=== PATIENT | female | born 1940 | race Caucasian/White ===

== ENCOUNTER 2019-08-05 16:19 | Inpatient (IN) | payer MEDICARE, BC ==
[~2019-08-05] VITALS: Ht 167.6 cm; Wt 79.9 kg
[2019-08-05 16:21] VITALS: BP 125/76
[2019-08-05] MEDS ORDERED: METHYL SALICYLATE/MENTHOL TOPICAL OINTMENT 57GM TUBE. TP PRN (16:45)
[2019-08-05] MEDS ORDERED: MAG HYDROX/AL HYDROX/SIMETH 30 ML ORAL.SUSP PO PRN (16:45)
[2019-08-05] MEDS ORDERED: MAGNESIUM HYDROXIDE 2,400 MG/30 ML ORAL.SUSP. PO PRN (16:45)
[2019-08-05] MEDS ORDERED: ACETAMINOPHEN 325 MG TABLET PO PRN (16:45)
[2019-08-05] MEDS ORDERED: ACET325T21 PO (17:04)
[2019-08-05] MEDS ORDERED: BETH10TA12 PO (17:04)
[2019-08-05] MEDS ORDERED: RIVA20TA2 PO (17:04)
[2019-08-05] MEDS ORDERED: AMLO5TAB10 PO (17:04)
[2019-08-05] MEDS ORDERED: TRAM50TA PO (17:04)
[2019-08-05] MEDS ORDERED: AMIO400T5 PO (17:04)
[2019-08-05] MEDS ORDERED: SERT50TA PO (17:04)
[2019-08-05] MEDS ORDERED: LOSA50TA86 PO (17:04)
[2019-08-05] MEDS ORDERED: traMADol 50 MG TABLET PO PRN (17:15)
[2019-08-05] MEDS: RIVAROXABAN 10 MG TABLET. PO SCH (17:37)
[2019-08-05] MEDS: AMIODARONE HCL 200 MG TABLET PO SCH (20:24)
[2019-08-05 21:02] LABS: ALBUMIN/GLOBULIN RATIO 0.5 (1.0-1.7); CALCIUM 8.4 mg/dL (8.5-10.1); CREATININE 0.8 mg/dL (0.6-1.0); GFR 69.4; MAGNESIUM 1.9 mg/dL (1.8-2.4); POTASSIUM 3.3 mmol/L (3.5-5.1); TOTAL BILIRUBIN 0.3 mg/dL (0.2-1.0); TOTAL PROTEIN 5.9 g/dL (6.4-8.2)
[2019-08-05 21:10] LABS: BASO # 0.1 x10^3/uL (0.0-0.2); BASO % 0 % (0-3); EOS % 0 % (0-3); HEMATOCRIT 29.1 % (36.0-47.0); HEMOGLOBIN 8.5 g/dL (12.0-15.5); LYMPH # 1.8 x10^3/uL (1.0-4.8); LYMPH % 12 % (24-48); MEAN CORPUSCULAR HEMOGLOBIN 20 pg (25-35); MEAN CORPUSCULAR HGB CONC 29 g/dL (31-37); MEAN CORPUSCULAR VOLUME 69 fL (79-100); MONO # 0.8 x10^3/uL (0.0-1.1); MONO % 6 % (0-9); NEUT # 12.2 x10^3uL (1.8-7.7); NEUT % 82 % (31-73); PLATELET COUNT 399 x10^3/uL (140-400); RED BLOOD COUNT 4.23 x10^6/uL (3.50-5.40); RED CELL DISTRIBUTION WIDTH 22.7 % (11.5-14.5); WHITE BLOOD COUNT 14.9 x10^3/uL (4.0-11.0)
--- NOTE | 2019-08-05 21:52 | PDOC ---
Exam Note: Daryn Note: Please also refer to the separate dictated note~for this date of service dictated separately. Discussed the patient with Nursing staff reviewed the chart.~Reviewed interim history and current functioning. Reviewed vital signs,~Labs/ Radiology~and current medications noted below. Continue current treatment with the changes noted in the dictated addendum note Assessment: Vital Signs/I&O: Vital Signs Date Time Temp Pulse Resp B/P (MAP) Pulse Ox O2 Delivery O2 Flow Rate FiO2 08/05/19 20:24 87 125/76 08/05/19 16:21 97.7 18 93 Room Air Labs: Laboratory Tests Test 08/05/19 20:40 White Blood Count 14.9 x10^3/uL (4.0-11.0) H Red Blood Count 4.23 x10^6/uL (3.50-5.40) Hemoglobin 8.5 g/dL (12.0-15.5) L Hematocrit 29.1 % (36.0-47.0) L Mean Corpuscular Volume 69 fL (79-100) L Mean Corpuscular Hemoglobin 20 pg (25-35) L Mean Corpuscular Hemoglobin Concent 29 g/dL (31-37) L Red Cell Distribution Width 22.7 % (11.5-14.5) H Platelet Count 399 x10^3/uL (140-400) Neutrophils (%) (Auto) 82 % (31-73) H Lymphocytes (%) (Auto) 12 % (24-48) L Monocytes (%) (Auto) 6 % (0-9) Eosinophils (%) (Auto) 0 % (0-3) Basophils (%) (Auto) 0 % (0-3) Neutrophils # (Auto) 12.2 x10^3uL (1.8-7.7) H Lymphocytes # (Auto) 1.8 x10^3/uL (1.0-4.8) Monocytes # (Auto) 0.8 x10^3/uL (0.0-1.1) Eosinophils # (Auto) 0.0 x10^3/uL (0.0-0.7) Basophils # (Auto) 0.1 x10^3/uL (0.0-0.2) Platelet Estimate Pending Sodium Level 140 mmol/L (136-145) Potassium Level 3.3 mmol/L (3.5-5.1) L Chloride Level 102 mmol/L (98-107) Carbon Dioxide Level 26 mmol/L (21-32) Anion Gap 12 (6-14) Blood Urea Nitrogen 12 mg/dL (7-20) Creatinine 0.8 mg/dL (0.6-1.0) Estimated GFR (Cockcroft-Gault) 69.4 BUN/Creatinine Ratio 15 (6-20) Glucose Level 128 mg/dL (70-99) H Calcium Level 8.4 mg/dL (8.5-10.1) L Magnesium Level 1.9 mg/dL (1.8-2.4) Total Bilirubin 0.3 mg/dL (0.2-1.0) Aspartate Amino Transferase (AST) 32 U/L (15-37) Alanine Aminotransferase (ALT) 45 U/L (14-59) Alkaline Phosphatase 138 U/L (46-116) H Total Protein 5.9 g/dL (6.4-8.2) L Albumin 2.0 g/dL (3.4-5.0) L Albumin/Globulin Ratio 0.5 (1.0-1.7) L Current Medications: Meds: Current Medications Medications (Trade) Dose Ordered Sig/Khris Route PRN Reason Start Time Stop Time Status Last Admin Dose Admin Rivaroxaban (Xarelto) 20 mg DAILYWSUP PO 08/05/19 17:00 08/05/19 17:37 I have reviewed the current psychotropics carefully including drug interactions. Risk benefit ratio favors no change other than as noted in my dictated progress note. Diagnosis: Problems: (1) MDD (major depressive disorder), severe (2) Psychotic depression (3) Psychosis, atypical (4) Major depressive disorder, recurrent episode LAI EDGE MD Aug 05, 2019 21:52
--- NOTE | 2019-08-05 21:53 | EKG ---
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
[2019-08-05 22:07] LABS: ANISOCYTOSIS MOD; HYPOCHROMIA MOD; MICROCYTOSIS MOD; OVALOCYTES FEW; PLATELET CLUMP PRESENT; PLT ESTIMATE ADEQUATE (ADEQUATE); POLYCHROMASIA SLIGHT; SPHEROCYTES OCC; TARGET CELLS FEW; TEAR DROP CELLS OCC
[2019-08-05 22:08] LABS: SCHISTOCYTES OCC
[2019-08-06 05:54] LABS: CLARITY,URINE HAZY; COLOR,URINE YELLOW
[2019-08-06 05:55] LABS: BACTERIA,URINE MOD /HPF (0-FEW); BILIRUBIN,URINE NEG (NEG); GLUCOSE,URINE NEG (NEG); NITRITE,URINE POS (NEG); RBC,URINE >40 /HPF (0-2); SQUAMOUS EPITHELIAL CELL,UR MOD /LPF; UROBILINOGEN,URINE 0.2 mg/dL (0.2 mg/dL); WBC,URINE >40 /HPF (0-4); YEAST,URINE PRESENT /HPF
[2019-08-06 06:17] VITALS: BP 149/71
[2019-08-06] MEDS: BETHANECHOL CHLORIDE 25 MG TABLET PO SCH ×3 (07:30→16:55)
[2019-08-06] MEDS ORDERED: TAMS0.4C97 PO (07:32)
[2019-08-06] MEDS: AMIODARONE HCL 200 MG TABLET PO SCH ×2 (09:00→20:06)
[2019-08-06] MEDS ORDERED: SERTRALINE 25 MG TABLET. PO SCH (09:00)
--- NOTE | 2019-08-06 11:00 | RAD ---
RENAL COMPLETE BILATERAL, US PELVIS History: Decreased urine output. History of obstruction. Comparison: None. Procedure: Transabdominal ultrasound images are obtained of the kidneys and bladder. Transabdominal ultrasound of the pelvis was also performed. Findings: Renal ultrasound: Right kidney: measures 10.4 x 5.2 x 6.3 cm. No hydronephrosis. Echogenic focus within the mid inferior kidney measures 1.5 cm. Left kidney: measures 9.2 x 6.0 x 5.4 cm. No hydronephrosis. Multiple left renal cysts largest measures 3.2 cm. Urinary bladder: Decompressed urinary bladder with Salgado catheter in place. The IVC is patent. The visualized abdominal aorta is normal caliber. Pelvic ultrasound: Prior hysterectomy. Bilateral ovaries not identified, may relate to absence due to surgery or related to positioning and overlying bowel gas. No adnexal fluid collection or mass identified. No free fluid. IMPRESSION: 1. Nonobstructing right renal calculus. No hydronephrosis. 2. Multiple left renal cysts. 3. Prior hysterectomy. Electronically signed by: Joel Wallace DO (08/06/2019 10:57 AM) [id number]
[2019-08-06 12:15] VITALS: BP 114/67
[2019-08-06] MEDS: LOSARTAN 50 MG TABLET. PO SCH (12:26)
[2019-08-06] MEDS: amLODIPine BESYLATE 5 MG TABLET PO SCH (12:27)
[2019-08-06] MEDS: TAMSULOSIN 0.4 MG CAP.ER.24H. PO SCH (12:27)
[2019-08-06 12:35] LABS: THYROID STIM HORMONE (TSH) 3.645 uIU/mL (0.358-3.740)
[2019-08-06] MEDS: ACETAMINOPHEN 325 MG TABLET PO PRN (13:16)
--- NOTE | 2019-08-06 13:23 | HP ---
ADMIT DATE: 08/05/2019 PSYCHIATRIC ADMISSION HISTORY AND EVALUATION This late entry, 08/05/2019, covers elements not covered in my initial note. Also discussed with Nathalie Davila, lead clinical research coordinator after we received a referral from [facility] where the patient was hospitalized for medical stabilization, status post fall at home and she is referred to us by Dr. Gallo, her primary care physician after having a psychiatric consultation at the facility, recommending inpatient psychiatric stabilization for worsening symptoms of depression, suicidal ideation, and the patient being almost catatonic consequent to depression. CHIEF COMPLAINT: "I was living at home by myself. I fell. Maybe I laid on the floor for more than 1 day before they found me. Yes, I have been depressed. There is nothing to look forward to." HISTORY OF PRESENT ILLNESS: The patient has a history of worsening symptoms of depression, feeling hopeless, helpless, worthless, poor appetite, low energy, low motivation, refusing cares and medications. Reportedly, she has had a flat affect as intermittent " wish." She will not get out of bed, although she is physically able to and will do so if she has commanded to get up. She had a recent fall resulting in dehydration and has had a UTI and urinary sepsis. She has failed outpatient psychiatric interventions resulting in this referral. PAST PSYCHIATRIC HISTORY: Positive for progressive symptoms of worsening depression, which has been fairly severe with physical manifestations. MEDICAL HISTORY: Positive for recent UTI; urosepsis; diverticulosis, status post dehydration; major depressive disorder, recurrent, severe with catatonic features; syncope; anemia; repeated falls; atrial fibrillation; hypertension; CA breast; hematuria. The patient has had MRI of the brain and abdominal CT at [facility]. ACCU-CHEKS: None. DIET: Low sodium, regular texture. Takes medications whole, ambulates up ad rosalio. ALLERGIES: PENICILLIN, KEFLEX. CODE STATUS: Full code. CURRENT PSYCHOTROPICS: Zoloft 75 mg a day. REVIEW OF SYSTEMS: Ambulation impaired, in wheelchair. No CV, , pulmonary, eye, ENT system symptoms on review. Reliability varies. MENTAL STATUS EXAMINATION: Oriented to herself and situation. Speech moderate latency, often responses monosyllabic. Abstraction fair, computation impaired, language function intact, attention span short. Mood and affect depressed. Verbal responses are moderate to marked latency, often responses monosyllabic. No active suicidal or homicidal ideation. LABORATORY DATA: Reviewed. IMPRESSION: Major depressive disorder, recurrent, severe with psychotic features; anxiety disorder, unspecified. Rest as above. PLAN: Admit to Geropsychiatry Unit at [facility]. I will see the patient daily individually from a psychiatric standpoint. Medical followup with Dr. Obrien. Continue the patient on her current psychotropics. May need to increase Zoloft or augment with Wellbutrin or Abilify. We will have social service staff, explore appropriate placement options with the patient. She was living at home by herself prior to coming to [facility] and then to us and she may not be able to function on her own. Estimated length of stay 10-12 days. DISPOSITION PLANS: Possibly placement may be needed at discharge. We will involve the family and his decision along with the patient. LAI EDGE MD DR: TYESHA/abeba JOB#: [id number] / [id number]
--- NOTE | 2019-08-06 14:50 | TX PLAN ---
Interdisciplinary Tx Plan Admission Information Aug 05, 2019 at 16:19 Legal Status (on Admission): Voluntary DPOA/Guardian Name: Michael Ordaz-son Contact Other Contact Verified Code Status: Full Code Allergies: Coded Allergies: Penicillins (Verified Allergy, Unknown, 08/05/19) cephalexin (Verified Allergy, Unknown, 08/05/19) Diagnoses Primary Diagnosis: MDD severe Reasons for Admission: Depressed, Sig. Change Appetite, Suicidal ideation Problem in Patient's Words: Per Mary, "I fell. I was on the floor for a long time." Additional Admission Comments: Per intake record, refusing care and medications, depressed with flat affect, has " wishes", declining to get out of bed, reports she can't move but when ordered to is able, poor appetite, poor energy level, and poor motivation. Problems Active Problems: Depressed, not caring for self, decreased motivation, needing physical support with adl's, preferring to stay in bed. Poor intake of meals with weight loss and lets her legs go weak when staff are assisting to transfer. Inactive Problems: Mary has been cooperative with medication administration and has agreed to try boost. Pt Strengths/Limitations Ability for Cameron: Poor Cognitive Functioning/Ability: Fair Communication Skills/Ability: Fair Financial Resources: Fair Insight/Judgement: Fair Intellectual Ability: Good Physical Health: Poor Social Skills: Fair Stability in Family: Good Verbal Skills: Fair Discharge Criteria Discharge Criteria: Able meet basic life need, Able to meet health needs, Adequate arrangements @DC, Adequate self-care, Verbal commit med comply, Improved mood/thought Preliminary Discharge Plan Preliminary DC Plan: Acute Rehab Other Arrangements: Mary prefers to return home upon d/c if physically able to do ADL's. Special Precautions Fall Risk: High Initial D/C Plan Home vs. SNF for acute rehab Identified Discharge Needs: Mary may benefit from a rehab stay after stabilized. She would prefer to return home if she is physically able to care for herself. She will need f/u with her PCP and would benefit from out patient psychiatry services. Currently Utilized Resources Currently Utilized Resources/P: PCP is Dr. Enrique Gallo. Referrals Community Resources: Out patient psychiatry Identified Problems/Hx/Goals Objectives/Short-Term Goals Short Term Goals: Decrease Isolation, Dec. Symp. Depression, Medication Stabilization, Monitor Med Effects, No Suicidal/Liang. ideation, Promote Coping Skill Short Term Goals in Patient's: "I want to go home and see my baby dog." Interventions/Frequency Staff Interventions/Frequency&: Nursing routine checks for safety, medication administration, and support with adl's. Psychiatry visits 3-5 times weekly. SW visits 2X weekly. SW and rec therapy groups involvement as Mary will participate. 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 Education: Mary graduated high school. She obtained a [employer] degree. 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 Community Follow-up PCP and out patient psychiatry Community Provider/Family Inpu: Mary and Michael(son/POA) will be involved in team meeting on 08/07/19, weather permitting. Treatment Plan Explained Patient/Billing Adjudicator had this treatment plan explained to him/her as indicated by the signature below and has been given the opportunity to ask questions and make suggestions: Date: Patient/Billing Adjudicator Signature: Patient/Billing Adjudicator Decline: Yes RYLEE ALEX Aug 06, 2019 14:50
[2019-08-06 15:56] VITALS: BP 110/59
[2019-08-06] MEDS: RIVAROXABAN 10 MG TABLET. PO SCH (16:54)
[2019-08-06 17:07] LABS: THYROXINE 9.3 ug/dL (4.5-12.0)
--- NOTE | 2019-08-06 20:51 | PDOC ---
Exam Note: Daryn Note: Please also refer to the separate dictated note~for this date of service dictated separately.~Patient seen individually. Discussed the patient with Nursing staff reviewed the chart.~Reviewed interim history and current functioning. Reviewed vital signs,~Labs/ Radiology~and current medications noted below. Continue current treatment with the changes noted in the dictated addendum note Assessment: Vital Signs/I&O: Vital Signs Date Time Temp Pulse Resp B/P (MAP) Pulse Ox O2 Delivery O2 Flow Rate FiO2 08/06/19 20:06 78 110/59 08/06/19 15:56 97.6 16 97 Room Air I & O 08/05/19 08/05/19 08/06/19 15:00 23:00 07:00 Intake Total 240 ml Balance 240 ml Labs: Laboratory Tests Test 08/06/19 05:45 Urine Collection Type Unknown Urine Color Yellow Urine Clarity Hazy Urine pH 6.0 Urine Specific [place] 1.020 Urine Protein 100 mg/dl (NEG-TRACE) Urine Glucose (UA) Neg mg/dL (NEG) Urine Ketones (Stick) 15 mg/dL (NEG) Urine Blood Large (NEG) Urine Nitrite Pos (NEG) Urine Bilirubin Neg (NEG) Urine Urobilinogen Dipstick 0.2 mg/dL (0.2 mg/dL) Urine Leukocyte Esterase Trace (NEG) Urine RBC >40 /HPF (0-2) Urine WBC >40 /HPF (0-4) Urine Squamous Epithelial Cells Mod /LPF Urine Bacteria Mod /HPF (0-FEW) Urine Yeast Present /HPF Current Medications: Meds: Current Medications Medications (Trade) Dose Ordered Sig/Khris Route PRN Reason Start Time Stop Time Status Last Admin Dose Admin Amlodipine Besylate (Norvasc) 5 mg DAILY PO 08/06/19 09:00 08/06/19 12:27 Losartan Potassium (Cozaar) 50 mg DAILY PO 08/06/19 09:00 08/06/19 12:26 Sertraline HCl (Zoloft) 75 mg DAILY PO 08/06/19 09:00 08/06/19 18:00 DC 08/06/19 12:27 Bethanechol Chloride (Urecholine) 12.5 mg TIDAC PO 08/06/19 07:30 08/06/19 16:55 Tamsulosin HCl (Flomax) 0.4 mg DAILY PO 08/06/19 09:00 08/06/19 12:27 Amiodarone HCl (Cordarone) 200 mg BID PO 08/06/19 21:00 08/09/19 21:01 08/06/19 20:06 I have reviewed the current psychotropics carefully including drug interactions. Risk benefit ratio favors no change other than as noted in my dictated progress note. Diagnosis: Problems: (1) Major depressive disorder, recurrent episode (2) MDD (major depressive disorder), severe (3) Psychosis, atypical LAI EDGE MD Aug 06, 2019 20:51
[2019-08-06 23:07] LABS: HEMOGLOBIN A1C 5.6 % (4.8-5.6)
[2019-08-07 05:56] VITALS: BP 126/64
[2019-08-07 07:53] LABS: HEMATOCRIT 27.8 % (36.0-47.0); HEMOGLOBIN 8.4 g/dL (12.0-15.5); RED BLOOD COUNT 4.07 x10^6/uL (3.50-5.40); RED CELL DISTRIBUTION WIDTH 22.5 % (11.5-14.5); WHITE BLOOD COUNT 10.4 x10^3/uL (4.0-11.0)
[2019-08-07 08:01] LABS: CALCIUM 8.7 mg/dL (8.5-10.1); CREATININE 0.7 mg/dL (0.6-1.0); GFR 80.9; POTASSIUM 3.4 mmol/L (3.5-5.1)
[2019-08-07] MEDS: BETHANECHOL CHLORIDE 25 MG TABLET PO SCH ×3 (08:11→17:28)
[2019-08-07] MEDS: ARIPiprazole 2 MG TABLET PO SCH (08:12)
[2019-08-07] MEDS: amLODIPine BESYLATE 5 MG TABLET PO SCH (08:13)
[2019-08-07] MEDS: TAMSULOSIN 0.4 MG CAP.ER.24H. PO SCH (08:13)
[2019-08-07] MEDS: SERTRALINE 100 MG TABLET. PO SCH (08:13)
[2019-08-07] MEDS: AMIODARONE HCL 200 MG TABLET PO SCH ×2 (08:13→20:26)
[2019-08-07] MEDS: LOSARTAN 50 MG TABLET. PO SCH (09:00)
[2019-08-07] MEDS ORDERED: POTASSIUM CHLORIDE 20 MEQ TABLET.ER. PO ONE (09:45)
--- NOTE | 2019-08-07 14:00 | PN ---
DATE: 08/06/2019 PSYCHIATRIC PROGRESS NOTE This late entry of August 06 covers elements not covered in my initial note. SUBJECTIVE: I met with the patient evening of August 06. Per CRISTINA Valencia, the patient slept 6-1/4 hours previous night. I have reviewed CT head and MRI with and without contrast of the brain from [facility]. There are some ischemic changes, microvascular changes, a atrophy, but no acute changes. Per nursing report, she appears a little confused at times, was unaware of what city she was in and appeared somewhat catatonic in the shower, was a weight for a period of time, refused to answer questions, was in a Broda chair after that. Rest of the day she has been more awake and was more interactive as I met with her in the evening. We will have a Neurology consult with Dr. James to make sure she does not have absence seizures. She also has a Salgado for retention. REVIEW OF SYSTEMS: Ambulation impaired, in Broda chair. No CV, , pulmonary, eye, ENT system symptoms on review other than the symptoms. MENTAL STATUS EXAM: Reasonably oriented. Speech is coherent, has some latency, often responses monosyllabic. Abstraction fair. Computation impaired. Language function intact. Attention span short. Mood and affect are withdrawn, depressed. No active suicidal ideation. We discussed at length circumstances at home and the fall she had, undiscovered for a day or two and need for alternate placement and she is agreeable to this even though reluctantly. IMPRESSION: Major depressive disorder, recurrent, rule out psychotic features; anxiety disorder, unspecified; mild cognitive impairment. PLAN: In addition to Neurology consult, increase Zoloft to 100 mg a day, augmented with Abilify 2 mg a day. Continue rest, unchanged for now. Received informed consent. LAI EDGE MD DR: TYESHA/abeba JOB#: [id number] / [id number]
[2019-08-07 16:10] VITALS: BP 92/60
[2019-08-07] MEDS: RIVAROXABAN 10 MG TABLET. PO SCH (17:28)
[2019-08-07] MEDS: ACETAMINOPHEN 325 MG TABLET PO PRN (18:24)
--- NOTE | 2019-08-07 20:50 | PDOC ---
Exam Note: Daryn Note: Please also refer to the separate dictated note~for this date of service dictated separately.~Patient seen individually. Discussed the patient with Nursing staff reviewed the chart.~Reviewed interim history and current functioning. Reviewed vital signs,~Labs/ Radiology~and current medications noted below. Continue current treatment with the changes noted in the dictated addendum note Assessment: Vital Signs/I&O: Vital Signs Date Time Temp Pulse Resp B/P (MAP) Pulse Ox O2 Delivery O2 Flow Rate FiO2 08/07/19 20:26 77 92/60 08/07/19 16:10 97.2 18 94 08/07/19 05:56 Room Air I & O 08/06/19 08/06/19 08/07/19 15:00 23:00 07:00 Intake Total 480 ml 480 ml 240 ml Balance 480 ml 480 ml 240 ml Labs: Laboratory Tests Test 08/07/19 07:45 White Blood Count 10.4 x10^3/uL (4.0-11.0) Red Blood Count 4.07 x10^6/uL (3.50-5.40) Hemoglobin 8.4 g/dL (12.0-15.5) L Hematocrit 27.8 % (36.0-47.0) L Mean Corpuscular Volume 68 fL (79-100) L Mean Corpuscular Hemoglobin 21 pg (25-35) L Mean Corpuscular Hemoglobin Concent 30 g/dL (31-37) L Red Cell Distribution Width 22.5 % (11.5-14.5) H Platelet Count 443 x10^3/uL (140-400) H Sodium Level 139 mmol/L (136-145) Potassium Level 3.4 mmol/L (3.5-5.1) L Chloride Level 104 mmol/L (98-107) Carbon Dioxide Level 29 mmol/L (21-32) Anion Gap 6 (6-14) Blood Urea Nitrogen 18 mg/dL (7-20) Creatinine 0.7 mg/dL (0.6-1.0) Estimated GFR (Cockcroft-Gault) 80.9 Glucose Level 89 mg/dL (70-99) Calcium Level 8.7 mg/dL (8.5-10.1) Current Medications: Meds: Current Medications Medications (Trade) Dose Ordered Sig/Khris Route PRN Reason Start Time Stop Time Status Last Admin Dose Admin Amiodarone HCl (Cordarone) 200 mg BID PO 08/06/19 21:00 08/09/19 21:01 08/07/19 20:26 Sertraline HCl (Zoloft) 100 mg DAILY PO 08/07/19 09:00 08/07/19 08:13 Aripiprazole (Abilify) 2 mg DAILY PO 08/07/19 09:00 08/07/19 08:12 Potassium Chloride (Klor-Con) 40 meq 1X ONCE PO 08/07/19 09:45 08/07/19 09:46 DC 08/07/19 12:13 I have reviewed the current psychotropics carefully including drug interactions. Risk benefit ratio favors no change other than as noted in my dictated progress note. Diagnosis: Problems: (1) MDD (major depressive disorder), severe (2) Psychotic depression (3) Psychosis, atypical (4) Major depressive disorder, recurrent episode LAI EDGE MD Aug 07, 2019 20:50
--- NOTE | 2019-08-08 02:07 | CONS ---
DATE OF CONSULTATION: 08/07/2019 REASON FOR CONSULTATION: Medical management. HISTORY OF PRESENT ILLNESS: The patient is a 78-year-old female patient, who lives at home and was seen at [facility] and from there she was [facility] on account of having poor appetite, low energy and low motivation, refusing cares and medication. Has a flat affect, has intermittent wish, wants to get out of bed, although she is physically able and will if commanded to get up. She has a recent fall, down for 2-4 days resulting in dehydration, UTI and urinary sepsis. PAST MEDICAL HISTORY: Significant for atrial fibrillation, hypertension, breast CA, hematuria. Has also urinary retention. PAST SURGICAL HISTORY: Significant for hysterectomy and IVC filter placement. ALLERGIES: She is allergic to PENICILLIN AND KEFLEX. MEDICATIONS: She is currently on following medications: She is on bethanechol for Urecholine 25 mg 3 times a day, tamsulosin 0.4 mg daily, rivaroxaban 20 mg daily, amiodarone 400 mg twice a day, amlodipine besylate 5 mg daily, losartan potassium 50 mg once a day, tramadol 50 mg every 6 hours, acetaminophen 650 mg every 4 hours and sertraline 75 mg p.o. daily. FAMILY HISTORY: Noncontributory. SOCIAL HISTORY: She lives alone. She apparently had a son who has the DPOA and a daughter who lives in [place]. She does not smoke or drink alcohol. 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 PHYSICAL EXAMINATION: GENERAL: When questioning her this afternoon, she denied any complaint. When I examined her, she was somewhat pale, no jaundice or cyanosis. No lymphadenopathy or thyromegaly. No jugular venous distension. No lower limb edema. VITAL SIGNS: Her heart rate was 77, blood pressure was 92/60, temperature 97.2, respiratory rate was 18 and oxygen saturation was 94%. HEAD, EYES, EARS, NOSE AND THROAT: Showed normocephalic, atraumatic. NECK: Supple. HEART: Showed normal first and second heart sounds. No gallop or murmur. CHEST: Clear to auscultation. No crepitation or rhonchi. ABDOMEN: Distended, soft, nontender. NEUROLOGIC: She is awake, alert, responding appropriately. All her cranial nerves intact. EXTREMITIES: She moves extremities without difficulty. She ambulates without assistance or assistive devices. LABORATORY WORK: Showed a white cell count of 10,000, hemoglobin 8.4, hematocrit 27.8, MCV 68 and platelet count of 443,000. Her chemistry showed a serum sodium 139, potassium 3.4, chloride 104, bicarbonate 29, anion gap of 6, BUN 18, creatinine 0.7, estimated GFR was 81 mL per minute. Her glucose was 89, calcium was 8.7, hemoglobin A1c was 5.6%. Serum iron 47, TIBC was 202 and iron saturation was 23. Her vitamin B12 was extremely high at 1888, 25-hydroxy vitamin D was normal. Her total T4 and TSH are normal. Her total T3 is 70 ng/dL. Urinalysis was consistent with urinary tract infection. The urine was positive for nitrite. There was large amount of white cell count and moderate amount of bacteria. Her treponema pallidum antibodies were nonreactive. She did have an abdominal ultrasound, which showed that the patient has right kidney measures 10.4 x 5.2 x 6.3. No hydronephrosis, echogenic focus within the mid inferior kidney measures 1.5 cm, left kidney measures 9.2 x 6 x 5.4. No hydronephrosis. Multiple left renal cysts. The largest measures 3.2. Urinary bladder is decompressed with Salgado catheter in place. IVC is patent. Visualized abdominal aorta is normal in caliber. Pelvis showed prior hysterectomy, bilateral ovaries not identified. The impression that the patient has nonobstructing right renal calculus. No hydronephrosis, multiple left renal cysts and prior hysterectomy. ASSESSMENT AND PLAN: In summary, this is a 78-year-old female patient who lives at home and came to [facility] Emergency Room and was admitted to this unit on account of poor appetite, low energy and low motivation, refusing care and medication, flat affect, has intermittent wish, wants to get out of bed, although she is physically able and will if commanded to get up. She has a recent fall, down for 2-4 days resulting in dehydration, UTI and urinary sepsis. Medically, the patient all in all seems to be stable. All vital signs are within acceptable range. She obviously seemed to be microcytic hypochromic anemia. Her chemistry is mostly within acceptable range. She does have severe protein-calorie malnutrition, serum albumin is only 2 g/dL and mild hypokalemia. We will continue obviously all her medication as they are and we will follow her labs. They are still pending at the time of this dictation. Thank you, Dr. Gaines for allowing me to participate in the care of this patient. JORDI STOCK MD DR: JUDI/abeba JOB#: [id number] / [id number]
[2019-08-08 05:56] VITALS: BP 136/68
[2019-08-08] MEDS: BETHANECHOL CHLORIDE 25 MG TABLET PO SCH ×3 (08:18→17:06)
[2019-08-08] MEDS: ARIPiprazole 2 MG TABLET PO SCH (08:18)
[2019-08-08] MEDS: LOSARTAN 50 MG TABLET. PO SCH (08:19)
[2019-08-08] MEDS: TAMSULOSIN 0.4 MG CAP.ER.24H. PO SCH (08:19)
[2019-08-08] MEDS: amLODIPine BESYLATE 5 MG TABLET PO SCH (08:20)
[2019-08-08] MEDS: SERTRALINE 100 MG TABLET. PO SCH (08:20)
[2019-08-08] MEDS: AMIODARONE HCL 200 MG TABLET PO SCH ×2 (08:21→20:48)
[2019-08-08 08:59] LABS: CALCIUM 8.8 mg/dL (8.5-10.1); CREATININE 0.8 mg/dL (0.6-1.0); GFR 69.4; POTASSIUM 4.2 mmol/L (3.5-5.1)
[2019-08-08 15:21] VITALS: BP 112/57
[2019-08-08] MEDS: RIVAROXABAN 10 MG TABLET. PO SCH (17:07)
--- NOTE | 2019-08-08 20:47 | PDOC ---
Exam Note: Daryn Note: Please also refer to the separate dictated note~for this date of service dictated separately.~Patient seen individually. Discussed the patient with Nursing staff reviewed the chart.~Reviewed interim history and current functioning. Reviewed vital signs,~Labs/ Radiology~and current medications noted below. Continue current treatment with the changes noted in the dictated addendum note Assessment: Vital Signs/I&O: Vital Signs Date Time Temp Pulse Resp B/P (MAP) Pulse Ox O2 Delivery O2 Flow Rate FiO2 08/08/19 15:21 97.2 74 15 112/57 (75) 95 08/08/19 05:56 Room Air I & O 08/07/19 08/07/19 08/08/19 15:00 23:00 07:00 Intake Total 720 ml 480 ml Balance 720 ml 480 ml Labs: Laboratory Tests Test 08/08/19 08:15 Sodium Level 140 mmol/L (136-145) Potassium Level 4.2 mmol/L (3.5-5.1) Chloride Level 102 mmol/L (98-107) Carbon Dioxide Level 29 mmol/L (21-32) Anion Gap 9 (6-14) Blood Urea Nitrogen 24 mg/dL (7-20) H Creatinine 0.8 mg/dL (0.6-1.0) Estimated GFR (Cockcroft-Gault) 69.4 Glucose Level 92 mg/dL (70-99) Calcium Level 8.8 mg/dL (8.5-10.1) Current Medications: I have reviewed the current psychotropics carefully including drug interactions. Risk benefit ratio favors no change other than as noted in my dictated progress note. Diagnosis: Problems: (1) MDD (major depressive disorder), severe (2) Psychotic depression (3) Psychosis, atypical (4) Major depressive disorder, recurrent episode LAI EDGE MD Aug 08, 2019 20:47
[2019-08-08] MEDS: levoFLOXacin 250 MG TABLET PO SCH (20:48)
[2019-08-08] MEDS: ACETAMINOPHEN 325 MG TABLET PO PRN (21:03)
--- NOTE | 2019-08-09 02:01 | CONS ---
DATE OF CONSULTATION: 08/07/2019 NEUROLOGIC CONSULTATION REFERRING PHYSICIAN: Dr. Gaines. REASON FOR CONSULTATION: Rule out seizure disorder. HISTORY OF PRESENT ILLNESS: This is a 78-year-old right-handed female who was admitted through Emergency Room on 08/05/2019 on account of increasing symptoms of depressions, poor appetite, generalized weakness and low motivation. Apparently, the patient was first evaluated at [facility] before transferred to [facility] here at [facility]. Reviewing the chart, the patient was found down on the floor. Apparently, she lost several hours of time on the floor and she did not recall the event. She felt she had a fall recently and acquired urinary tract infections and sepsis. Currently, the patient denies headaches, visual disturbances, nausea, vomiting, chest pain, shortness of breath or palpitation, but she complains of generalized arthritis and mainly in the shoulders, more prominent on the right side. The patient denies any history of seizure. PAST MEDICAL HISTORY: Significant for hypertension, breast cancer, hematuria, urinary retention and history of atrial fibrillation, depression and cardiac arrhythmia. PAST SURGICAL HISTORY: Positive for hysterectomy and IVC filter placement. FAMILY HISTORY: Noncontributory. SOCIAL HISTORY: The patient lives alone. She has one son and daughter. She denies smoking, alcohol drinking, or illicit drug use. CURRENT HOME MEDICATIONS: Urecholine 25 mg 3 times daily, tamsulosin 0.4 mg daily, rivaroxaban 20 mg daily, amiodarone 400 mg twice daily, amlodipine 5 mg daily, losartan potassium 50 mg daily, tramadol 50 mg every 6 hours p.r.n. for pain, Tylenol 650 mg every 4 hours and sertraline 75 mg daily. REVIEW OF SYSTEMS: A 10-point review of system was performed as mentioned above in history of present illness, otherwise unremarkable. PHYSICAL EXAMINATION: GENERAL: Well-developed, well-nourished female, not in acute distress. She weighs 76.8 kilos. VITAL SIGNS: Blood pressure 126/64, respiratory rate 14, pulse rate 88, temperature is 97.1, oxygen saturation 94% on room air. HEENT: Normocephalic, atraumatic, otherwise unremarkable. NECK: Supple. Negative for carotid bruit, lymphadenopathy or thyromegaly. LUNGS: Clear to A and P. CARDIOVASCULAR: Regular rhythm, normal S1, S2. There is a 2/6 systolic murmur. ABDOMEN: Soft. Bowel sounds positive. EXTREMITIES: Negative for cyanosis, clubbing or edema. NEUROLOGICAL: Mental Status: The patient is alert and oriented x 2. Speech is fluent. There is no language dysfunction. Memory, judgment, and abstracting thinking are fair. The patient denies hallucination or delusion. CRANIAL NERVES: Visual al are full. The pupils are reactive to light and accommodation. The extraocular movements are intact. There is no nystagmus. There is no facial motor or sensory deficit. Hearing is intact bilaterally. The palate is elevated symmetrically. Sternocleidomastoid muscles are powerful bilaterally. The patient shrugs her shoulders symmetrically, protrudes her tongue in the midline without fasciculation or atrophy. MOTOR EXAMINATION: No focal muscle bulk was seen. The tone is normal. The strength is 4/5 throughout. The patient had decreased range of motions of the right upper extremity at the shoulder secondary to pain. SENSORY EXAMINATION: Revealed normal pinprick, light touch, vibratory and position senses. Deep tendon reflexes were symmetric and hypoactive with absent Achilles responses. GAIT: The patient uses a cane sometimes for ambulation. DIAGNOSTIC DATA: Abdominal ultrasound revealed nonobstructing right renal calculus without evidence of hydronephrosis, multiple left renal cysts. LABORATORY DATA: CBC revealed white blood cells of 10.4 thousand, hemoglobin 8.4, hematocrit 27.8, platelet count 443,000. Chemistry revealed sodium of 139, potassium 3.4, chloride 104, CO2 of 29, BUN 18, creatinine 0.7, glucose 89 and calcium 8.7. Vitamin B12 is high at 1888 with normal T4. Urinalysis revealed positive nitrite and trace urinary leukocyte esterase with white blood cells more than 40 and present bacteria. IMPRESSION: 1. Recent fall with possible prolonged loss of consciousness. The patient stayed on the floor after the fall. She did not recall any seizure-like activities. However, the seizure should be ruled out. 2. History of cardiac arrhythmia and cardiac murmur. 3. Multiple medical problems include urinary tract infections, hypertension, status post IV ___, hypokalemia and anemia. RECOMMENDATION: 1. The patient needs electroencephalogram - EEG. 2. Continue with current medical and psychiatric care. 3. Physical therapy evaluation. 4. Treat the underlying 5. Potassium supplement. M Sabina LADD MD DR: Chandni JOB#: [id number] / [id number]
[2019-08-09 05:37] VITALS: BP 129/74
[2019-08-09] MEDS: ARIPiprazole 2 MG TABLET PO SCH (08:24)
[2019-08-09] MEDS: BETHANECHOL CHLORIDE 25 MG TABLET PO SCH ×4 (08:24→19:41)
[2019-08-09] MEDS: AMIODARONE HCL 200 MG TABLET PO SCH ×2 (08:25→19:40)
[2019-08-09] MEDS: LOSARTAN 50 MG TABLET. PO SCH (08:26)
[2019-08-09] MEDS: amLODIPine BESYLATE 5 MG TABLET PO SCH (08:27)
[2019-08-09] MEDS: TAMSULOSIN 0.4 MG CAP.ER.24H. PO SCH (08:27)
[2019-08-09] MEDS: LACTOBACILLUS RHAMNOSUS GG 1 CAPSULE. PO SCH ×2 (08:29→19:39)
[2019-08-09] MEDS: SERTRALINE 100 MG TABLET. PO SCH (08:30)
[2019-08-09 15:24] VITALS: BP 106/66
[2019-08-09] MEDS: RIVAROXABAN 10 MG TABLET. PO SCH (16:32)
[2019-08-09] MEDS: levoFLOXacin 250 MG TABLET PO SCH (16:32)
[2019-08-09] MEDS: ACETAMINOPHEN 325 MG TABLET PO PRN (17:22)
--- NOTE | 2019-08-09 20:50 | PDOC ---
Exam Note: Daryn Note: Please also refer to the separate dictated note~for this date of service dictated separately.~Patient seen individually. Discussed the patient with Nursing staff reviewed the chart.~Reviewed interim history and current functioning. Reviewed vital signs,~Labs/ Radiology~and current medications noted below. Continue current treatment with the changes noted in the dictated addendum note Assessment: Vital Signs/I&O: Vital Signs Date Time Temp Pulse Resp B/P (MAP) Pulse Ox O2 Delivery O2 Flow Rate FiO2 08/09/19 19:40 79 106/66 08/09/19 15:24 98.4 20 96 08/08/19 05:56 Room Air I & O 08/08/19 08/08/19 08/09/19 15:00 23:00 07:00 Intake Total 480 ml 480 ml Output Total 375 ml Balance 480 ml 105 ml Current Medications: Meds: Current Medications Medications (Trade) Dose Ordered Sig/Khris Route PRN Reason Start Time Stop Time Status Last Admin Dose Admin Lactobacillus Rhamnosus (Culturelle) 1 cap BID PO 08/09/19 09:00 08/09/19 19:39 I have reviewed the current psychotropics carefully including drug interactions. Risk benefit ratio favors no change other than as noted in my dictated progress note. Diagnosis: Problems: (1) MDD (major depressive disorder), severe (2) Psychotic depression (3) Psychosis, atypical (4) Major depressive disorder, recurrent episode LAI EDGE MD Aug 09, 2019 20:50
--- NOTE | 2019-08-09 23:14 | PN ---
DATE: 08/08/2019 PSYCHIATRIC PROGRESS NOTE This late entry, 08/08/2019, covers elements not covered in my initial note. SUBJECTIVE: I met with the patient in the evening of 08/08/2019. The patient slept 9-1/2 hours previous night. She does have UTI and is being started on Levaquin 250 mg a day for 5 days per sensitivity result. She remains withdrawn, isolative, verbal responses monosyllabic, but a little better than before. REVIEW OF SYSTEMS: Ambulation impaired and she was in bed as I met with her. No CV, , pulmonary, eye system symptoms on review. MENTAL STATUS EXAM: Oriented reasonably. Speech moderate latency, often responses monosyllabic. Abstraction fair, computation impaired, language function intact. Mood and affect depressed, withdrawn, but improving. LABORATORY DATA: Reviewed. IMPRESSION: Major depressive disorder, recurrent, with psychotic features, urinary tract infection. Rest unchanged. PLAN: Treat the UTI. Maintain Zoloft and Abilify. Adjust as clinically indicated. LAI EDGE MD DR: TYESHA/abeba JOB#: [id number] / [id number]
--- NOTE | 2019-08-09 23:17 | PN ---
DATE: 08/07/2019 PSYCHIATRIC PROGRESS NOTE This late entry of 08/07/2019 covers the elements not covered in my initial note. SUBJECTIVE: I met with the patient in the evening of 08/07/2019. Per CRISTINA Henderson, the patient slept 8 hours previous night, remains depressed, withdrawn, often verbal responses are monosyllabic. Appetite is better. REVIEW OF SYSTEMS: Ambulation impaired, in wheelchair. No CV, , pulmonary, eye, ENT system symptoms on review. MENTAL STATUS EXAM: Reasonably oriented. Speech has some latency, often responses monosyllabic. Abstraction fair, computation impaired, language function intact. Mood and affect withdrawn but subjectively, she states she feels "a little better" as I questioned her. No suicidal ideation at this time. LABORATORY DATA: Reviewed. IMPRESSION: Major depressive disorder, recurrent with possible psychotic features. Rest unchanged. PLAN: No change from initial note. Maintain Abilify 2 mg a day to augment the Zoloft 100 mg a day, may need to increase Abilify gradually. MAN Ebonie EDGE MD DR: TYESHA/abeba JOB#: [id number] / [id number]
[2019-08-10 05:56] VITALS: BP 150/81
[2019-08-10] MEDS: ARIPiprazole 2 MG TABLET PO SCH (08:16)
[2019-08-10] MEDS: LOSARTAN 50 MG TABLET. PO SCH (08:17)
[2019-08-10] MEDS: AMIODARONE HCL 200 MG TABLET PO SCH (08:17)
[2019-08-10] MEDS: LACTOBACILLUS RHAMNOSUS GG 1 CAPSULE. PO SCH ×2 (08:17→19:45)
[2019-08-10] MEDS: TAMSULOSIN 0.4 MG CAP.ER.24H. PO SCH (08:17)
[2019-08-10] MEDS: amLODIPine BESYLATE 5 MG TABLET PO SCH (08:18)
[2019-08-10] MEDS: SERTRALINE 100 MG TABLET. PO SCH (08:18)
[2019-08-10] MEDS: BETHANECHOL CHLORIDE 25 MG TABLET PO SCH ×2 (08:18→16:45)
[2019-08-10] MEDS: ACETAMINOPHEN 325 MG TABLET PO PRN ×2 (08:30→20:20)
[2019-08-10 15:52] VITALS: BP 115/69
[2019-08-10] MEDS: levoFLOXacin 250 MG TABLET PO SCH (16:45)
[2019-08-10] MEDS: RIVAROXABAN 10 MG TABLET. PO SCH (16:45)
--- NOTE | 2019-08-10 20:46 | PDOC ---
Exam Note: Daryn Note: Please also refer to the separate dictated note~for this date of service dictated separately.~Patient seen individually. Discussed the patient with Nursing staff reviewed the chart.~Reviewed interim history and current functioning. Reviewed vital signs,~Labs/ Radiology~and current medications noted below. Continue current treatment with the changes noted in the dictated addendum note Assessment: Vital Signs/I&O: Vital Signs Date Time Temp Pulse Resp B/P (MAP) Pulse Ox O2 Delivery O2 Flow Rate FiO2 08/10/19 15:52 98.0 78 16 115/69 (84) 95 08/08/19 05:56 Room Air I & O 08/09/19 08/09/19 08/10/19 15:00 23:00 07:00 Intake Total 960 ml 240 ml 240 ml Balance 960 ml 240 ml 240 ml Current Medications: Meds: Current Medications Medications (Trade) Dose Ordered Sig/Khris Route PRN Reason Start Time Stop Time Status Last Admin Dose Admin Amiodarone HCl (Cordarone) 200 mg DAILY PO 08/10/19 09:00 08/10/19 08:17 I have reviewed the current psychotropics carefully including drug interactions. Risk benefit ratio favors no change other than as noted in my dictated progress note. Diagnosis: Problems: (1) MDD (major depressive disorder), severe (2) Psychotic depression (3) Psychosis, atypical (4) Major depressive disorder, recurrent episode LAI EDGE MD Aug 10, 2019 20:46
--- NOTE | 2019-08-10 23:31 | PN ---
DATE: 08/09/2019 PSYCHIATRIC PROGRESS NOTE This late entry 08/09/2019 covers elements not covered in my initial note. SUBJECTIVE: I met with the patient evening of 08/09/2019. The patient slept 7-3/4 hours previous night per CRISTINA Tena. She does have a UTI and is on Levaquin. She has been out of the Broda chair, trying to ambulate with a walker, came to the day room. I met with her in her room. REVIEW OF SYSTEMS: Ambulation impaired. No CV, , pulmonary, eye, ENT system symptoms on review. MENTAL STATUS EXAM: Oriented to herself and situation. Speech has some latency, often responses monosyllabic, coherent. Abstraction fair, computation impaired, language function intact, attention span short. Mood and affect still depressed, anxious, withdrawn, but improved. No suicidal ideation. LABORATORY DATA: Reviewed. IMPRESSION: Major depressive disorder with psychotic features in partial remission; mild cognitive impairment. Rest unchanged. PLAN: Continue current psychotropics, Zoloft, being augmented with Abilify, may need to increase both gradually once we resolve the UTI and depending on her progress. MAN Ebonie EDGE MD DR: TYESHA/abeba JOB#: [id number] / [id number]
[2019-08-11 06:05] VITALS: BP 139/73
[2019-08-11] MEDS: BETHANECHOL CHLORIDE 25 MG TABLET PO SCH ×3 (08:25→16:13)
[2019-08-11] MEDS: LOSARTAN 50 MG TABLET. PO SCH (08:25)
[2019-08-11] MEDS: LACTOBACILLUS RHAMNOSUS GG 1 CAPSULE. PO SCH ×2 (08:25→21:02)
[2019-08-11] MEDS: ARIPiprazole 2 MG TABLET PO SCH (08:26)
[2019-08-11] MEDS: TAMSULOSIN 0.4 MG CAP.ER.24H. PO SCH (08:26)
[2019-08-11] MEDS: SERTRALINE 50 MG TABLET. PO SCH (08:27)
[2019-08-11] MEDS: amLODIPine BESYLATE 5 MG TABLET PO SCH (08:27)
[2019-08-11] MEDS: AMIODARONE HCL 200 MG TABLET PO SCH (08:27)
[2019-08-11] MEDS: ACETAMINOPHEN 325 MG TABLET PO PRN ×2 (08:27→21:02)
[2019-08-11 16:12] VITALS: BP 111/67
[2019-08-11] MEDS: levoFLOXacin 250 MG TABLET PO SCH (16:13)
[2019-08-11] MEDS: RIVAROXABAN 10 MG TABLET. PO SCH (16:13)
--- NOTE | 2019-08-11 19:03 | PN ---
DATE: 08/10/2019 PSYCHIATRIC PROGRESS NOTE This late entry 08/10/2019 covers elements not covered in my initial note. SUBJECTIVE: I met with the patient evening of 08/10/2019. Per nursing report, the patient slept 8 hours previous night per Sondra RN. She has had a good day, wanting her Salgado out. Does have pseudomonas infection and this is a concern on the unit. REVIEW OF SYSTEMS: Ambulation impaired, in wheelchair. No CV, , pulmonary, eye, ENT system symptoms on review. MENTAL STATUS EXAM: Reasonably oriented. Speech moderate latency, often responses monosyllabic. Abstraction fair, computation impaired, language function intact, attention span short. Mood and affect withdrawn, still depressed. LABORATORY DATA: Reviewed. IMPRESSION: Major depressive disorder, recurrent with psychotic features. Rest unchanged. PLAN: Increase Zoloft from 100 mg a day to 125 mg a day, Abilify from 2 mg a day to 3 mg a day as an atypical antipsychotic and to augment the Zoloft. Rest unchanged for now. MAN Ebonie EDGE MD DR: TYESHA/abeba JOB#: [id number] / [id number]
--- NOTE | 2019-08-11 20:53 | PDOC ---
Exam Note: Daryn Note: Please also refer to the separate dictated note~for this date of service dictated separately.~Patient seen individually. Discussed the patient with Nursing staff reviewed the chart.~Reviewed interim history and current functioning. Reviewed vital signs,~Labs/ Radiology~and current medications noted below. Continue current treatment with the changes noted in the dictated addendum note Assessment: Vital Signs/I&O: Vital Signs Date Time Temp Pulse Resp B/P (MAP) Pulse Ox O2 Delivery O2 Flow Rate FiO2 08/11/19 16:12 97.7 75 16 111/67 (82) 95 Room Air I & O 08/10/19 08/10/19 08/11/19 15:00 23:00 07:00 Intake Total 840 ml 900 ml Output Total 300 ml 300 ml Balance 840 ml 600 ml -300 ml Current Medications: Meds: Current Medications Medications (Trade) Dose Ordered Sig/Khris Route PRN Reason Start Time Stop Time Status Last Admin Dose Admin Aripiprazole (Abilify) 3 mg DAILY PO 08/11/19 09:00 08/11/19 08:26 Sertraline HCl (Zoloft) 125 mg DAILY PO 08/11/19 09:00 08/11/19 08:27 I have reviewed the current psychotropics carefully including drug interactions. Risk benefit ratio favors no change other than as noted in my dictated progress note. Diagnosis: Problems: (1) MDD (major depressive disorder), severe (2) Psychotic depression (3) Psychosis, atypical (4) Major depressive disorder, recurrent episode LAI EDGE MD Aug 11, 2019 20:53
[2019-08-12 04:59] VITALS: BP 133/75
[2019-08-12] MEDS: SERTRALINE 50 MG TABLET. PO SCH (08:12)
[2019-08-12] MEDS: TAMSULOSIN 0.4 MG CAP.ER.24H. PO SCH (08:13)
[2019-08-12] MEDS: AMIODARONE HCL 200 MG TABLET PO SCH (08:13)
[2019-08-12] MEDS: amLODIPine BESYLATE 5 MG TABLET PO SCH (08:13)
[2019-08-12] MEDS: LACTOBACILLUS RHAMNOSUS GG 1 CAPSULE. PO SCH ×2 (08:14→21:07)
[2019-08-12] MEDS: BETHANECHOL CHLORIDE 25 MG TABLET PO SCH ×3 (08:14→17:55)
[2019-08-12] MEDS: ARIPiprazole 2 MG TABLET PO SCH (08:14)
[2019-08-12] MEDS: LOSARTAN 50 MG TABLET. PO SCH (08:15)
--- NOTE | 2019-08-12 10:34 | TX PLAN ---
Interdisciplinary Tx Plan Admission Information Aug 05, 2019 at 16:19 Legal Status (on Admission): Voluntary DPOA/Guardian Name: Michael Ordaz-son Contact Other Contact Verified Code Status: Full Code Allergies: Coded Allergies: Penicillins (Verified Allergy, Unknown, 08/05/19) cephalexin (Verified Allergy, Unknown, 08/05/19) Diagnoses Primary Diagnosis: MDD severe Reasons for Admission: Depressed, Sig. Change Appetite, Suicidal ideation Problem in Patient's Words: Per Mary, "I fell. I was on the floor for a long time." Additional Admission Comments: Per intake record, refusing care and medications, depressed with flat affect, has " wishes", declining to get out of bed, reports she can't move but when ordered to is able, poor appetite, poor energy level, and poor motivation. Problems Active Problems: Depressed, not caring for self, decreased motivation, needing physical support with adl's, preferring to stay in bed. Poor intake of meals with weight loss and lets her legs go weak when staff are assisting to transfer. Inactive Problems: Mary has been cooperative with medication administration and has agreed to try boost. Pt Strengths/Limitations Ability for Pleasants: Poor Cognitive Functioning/Ability: Fair Communication Skills/Ability: Fair Financial Resources: Fair Insight/Judgement: Fair Intellectual Ability: Good Physical Health: Poor Social Skills: Fair Stability in Family: Good Verbal Skills: Fair Discharge Criteria Discharge Criteria: Able meet basic life need, Able to meet health needs, Adequate arrangements @DC, Adequate self-care, Verbal commit med comply, Improved mood/thought Preliminary Discharge Plan Preliminary DC Plan: Acute Rehab Other Arrangements: Mary prefers to return home upon d/c if physically able to do ADL's. Special Precautions Fall Risk: High Initial D/C Plan Home vs. SNF for acute rehab Identified Discharge Needs: Mary may benefit from a rehab stay after stabilized. She would prefer to return home if she is physically able to care for herself. She will need f/u with her PCP and would benefit from out patient psychiatry services. Currently Utilized Resources Currently Utilized Resources/P: PCP is Dr. Enrique Gallo. Referrals Community Resources: Out patient psychiatry Identified Problems/Hx/Goals Objectives/Short-Term Goals Short Term Goals: Decrease Isolation, Dec. Symp. Depression, Medication Stabilization, Monitor Med Effects, No Suicidal/Liang. ideation, Promote Coping Skill Short Term Goals in Patient's: "I want to go home and see my baby dog." Interventions/Frequency Staff Interventions/Frequency&: Nursing routine checks for safety, medication administration, and support with adl's. Psychiatry visits 3-5 times weekly. SW visits 2X weekly. SW and rec therapy groups involvement as Mary will participate. 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 Education: Mary graduated high school. She obtained a [employer] degree. 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 Community Follow-up PCP and out patient psychiatry Community Provider/Family Inpu: Mary and Michael(son/POA) will be involved in team meeting on 08/07/19, weather permitting. Treatment Plan Explained Patient/High Lighter had this treatment plan explained to him/her as indicated by the signature below and has been given the opportunity to ask questions and make suggestions: Date: Patient/High Lighter Signature: Status Update Update WEEKLY NOTE/UPDATE: Mary is averaging 6 hours of sleep at night and intakes are averaging 40%. Mary has been medication compliant and cooperative with nursing assessments. She continues to lack motivation and reports low energy levels often wanting to spend time in bed. With encouragement she has stayed up in her w/c and will sit in the day room. She has declined to attend SW groups but did participate from afar this morning. She reports PT/OT as hard. Mary had a CARE assessment completed on 08/11/19 and is expressing a desire to go to a SNF for short term rehab once she is discharged from [facility]. Both Mary and her son will be involved in team meeting on 08/13/19. RYLEE ALEX Aug 12, 2019 10:34
[2019-08-12] MEDS: ACETAMINOPHEN 325 MG TABLET PO PRN (13:51)
[2019-08-12 15:50] VITALS: BP 113/66
[2019-08-12] MEDS: RIVAROXABAN 10 MG TABLET. PO SCH (17:00)
[2019-08-12] MEDS: levoFLOXacin 250 MG TABLET PO SCH (17:56)
--- NOTE | 2019-08-12 20:48 | PDOC ---
Exam Note: Daryn Note: Please also refer to the separate dictated note~for this date of service dictated separately.~Patient seen individually. Discussed the patient with Nursing staff reviewed the chart.~Reviewed interim history and current functioning. Reviewed vital signs,~Labs/ Radiology~and current medications noted below. Continue current treatment with the changes noted in the dictated addendum note Assessment: Vital Signs/I&O: Vital Signs Date Time Temp Pulse Resp B/P (MAP) Pulse Ox O2 Delivery O2 Flow Rate FiO2 08/12/19 15:50 98.3 60 18 113/66 (82) 97 08/12/19 04:59 Room Air I & O 08/11/19 08/11/19 08/12/19 15:00 23:00 07:00 Intake Total 600 ml 580 ml Output Total 300 ml Balance 600 ml 280 ml Current Medications: I have reviewed the current psychotropics carefully including drug interactions. Risk benefit ratio favors no change other than as noted in my dictated progress note. Diagnosis: Problems: (1) MDD (major depressive disorder), severe (2) Psychotic depression (3) Psychosis, atypical (4) Major depressive disorder, recurrent episode LAI EDGE MD Aug 12, 2019 20:48
--- NOTE | 2019-08-12 23:04 | PN ---
DATE: 08/11/2019 This late entry 08/11/2019 covers elements not covered in the initial note. SUBJECTIVE: I met with the patient evening of 08/11/2019. Per CRISTINA Patel, the patient slept 8 hours previous night. She has been in bed most of the day, tired because she ambulated with physical therapy staff. I met with her in the evening at length in her room. She has been pleasant, compliant with medications, still feels she is depressed, but better than before. She wanted her covers put over her, which I did and she was very appreciative of this. REVIEW OF SYSTEMS: Ambulation impaired, with walker. No CV, , pulmonary, eye, ENT system symptoms on review. MENTAL STATUS EXAM: Oriented to herself and situation. Speech moderate latency, often responses monosyllabic. Abstraction fair, computation impaired, language function intact, attention span short. Mood and affect still depressed, withdrawn, but better than before. No suicidal ideation. LABORATORY DATA: Reviewed. IMPRESSION: Major depressive disorder, recurrent with possible psychotic features, mild cognitive impairment. Rest unchanged. PLAN: No change from initial note. Continue Zoloft, which has been increased to 125 mg a day; Abilify, which has been increased to 3 mg a day. LAI EDGE MD DR: TYESHA/abeba JOB#: [id number] / [id number]
[2019-08-13 06:23] VITALS: BP 136/59
[2019-08-13] MEDS: ARIPiprazole 2 MG TABLET PO SCH (08:43)
[2019-08-13] MEDS: SERTRALINE 50 MG TABLET. PO SCH (08:44)
[2019-08-13] MEDS: LOSARTAN 50 MG TABLET. PO SCH (08:45)
[2019-08-13] MEDS: amLODIPine BESYLATE 5 MG TABLET PO SCH (08:45)
[2019-08-13] MEDS: BETHANECHOL CHLORIDE 25 MG TABLET PO SCH ×3 (08:45→16:47)
[2019-08-13] MEDS: LACTOBACILLUS RHAMNOSUS GG 1 CAPSULE. PO SCH ×2 (08:45→19:52)
[2019-08-13] MEDS: AMIODARONE HCL 200 MG TABLET PO SCH (08:45)
[2019-08-13] MEDS: TAMSULOSIN 0.4 MG CAP.ER.24H. PO SCH (08:46)
[2019-08-13 16:09] VITALS: BP 104/58
[2019-08-13] MEDS: levoFLOXacin 250 MG TABLET PO SCH (16:47)
[2019-08-13] MEDS: RIVAROXABAN 10 MG TABLET. PO SCH (16:47)
--- NOTE | 2019-08-13 20:58 | PDOC ---
Exam Note: Daryn Note: Please also refer to the separate dictated note~for this date of service dictated separately.~Patient seen individually. Discussed the patient with Nursing staff reviewed the chart.~Reviewed interim history and current functioning. Reviewed vital signs,~Labs/ Radiology~and current medications noted below. Continue current treatment with the changes noted in the dictated addendum note Assessment: Vital Signs/I&O: Vital Signs Date Time Temp Pulse Resp B/P (MAP) Pulse Ox O2 Delivery O2 Flow Rate FiO2 08/13/19 16:09 98.5 83 18 104/58 (73) 95 08/13/19 06:23 Room Air I & O 08/12/19 08/12/19 08/13/19 15:00 23:00 07:00 Intake Total 960 ml 360 ml Output Total 550 ml Balance 960 ml 360 ml -550 ml Current Medications: I have reviewed the current psychotropics carefully including drug interactions. Risk benefit ratio favors no change other than as noted in my dictated progress note. Diagnosis: Problems: (1) MDD (major depressive disorder), severe (2) Psychotic depression (3) Psychosis, atypical (4) Major depressive disorder, recurrent episode LAI EDGE MD Aug 13, 2019 20:58
--- NOTE | 2019-08-13 22:20 | PN ---
DATE: 08/12/2019 PSYCHIATRIC PROGRESS NOTE This late entry 08/12/2019 covers ____. SUBJECTIVE: I met with the patient evening of 08/12/2019. Per CRISTINA Patel, the patient slept 10 hours previous night. Though the patient subjectively states she does not feel she slept ____. MENTAL STATUS EXAM: Oriented to herself and situation. Speech has some latency, coherent, at times, low in volume. Abstraction fair, computation impaired, language function intact, attention span short. Mood and affect still depressed, withdrawn, anxious, but improved. LABORATORY DATA: Reviewed. IMPRESSION: Major depressive disorder, recurrent with psychotic features, in partial remission. Rest unchanged. PLAN: No change from initial note. LAI EDGE MD DR: TYESHA/abeba JOB#: [id number] / [id number]
[2019-08-14 06:08] VITALS: BP 128/78
[2019-08-14] MEDS: ARIPiprazole 2 MG TABLET PO SCH (08:10)
[2019-08-14] MEDS: SERTRALINE 50 MG TABLET. PO SCH (08:11)
[2019-08-14] MEDS: LOSARTAN 50 MG TABLET. PO SCH (08:11)
[2019-08-14] MEDS: AMIODARONE HCL 200 MG TABLET PO SCH (08:11)
[2019-08-14] MEDS: LACTOBACILLUS RHAMNOSUS GG 1 CAPSULE. PO SCH ×2 (08:11→20:21)
[2019-08-14] MEDS: BETHANECHOL CHLORIDE 25 MG TABLET PO SCH ×3 (08:12→17:08)
[2019-08-14] MEDS: TAMSULOSIN 0.4 MG CAP.ER.24H. PO SCH (08:12)
[2019-08-14] MEDS: amLODIPine BESYLATE 5 MG TABLET PO SCH (08:12)
[2019-08-14 15:53] VITALS: BP 114/73
[2019-08-14] MEDS: ACETAMINOPHEN 325 MG TABLET PO PRN (20:21)
--- NOTE | 2019-08-14 20:58 | PDOC ---
Exam Note: Daryn Note: Please also refer to the separate dictated note~for this date of service dictated separately.~Patient seen individually. Discussed the patient with Nursing staff reviewed the chart.~Reviewed interim history and current functioning. Reviewed vital signs,~Labs/ Radiology~and current medications noted below. Continue current treatment with the changes noted in the dictated addendum note Assessment: Vital Signs/I&O: Vital Signs Date Time Temp Pulse Resp B/P (MAP) Pulse Ox O2 Delivery O2 Flow Rate FiO2 08/14/19 15:53 98.0 76 18 114/73 (87) 98 08/13/19 06:23 Room Air I & O 08/13/19 08/13/19 08/14/19 15:00 23:00 07:00 Intake Total 240 ml 200 ml 240 ml Balance 240 ml 200 ml 240 ml Current Medications: I have reviewed the current psychotropics carefully including drug interactions. Risk benefit ratio favors no change other than as noted in my dictated progress note. Diagnosis: Problems: (1) MDD (major depressive disorder), severe (2) Psychotic depression (3) Psychosis, atypical (4) Major depressive disorder, recurrent episode LAI EDGE MD Aug 14, 2019 20:58
--- NOTE | 2019-08-14 22:38 | PN ---
DATE: 08/13/2019 PSYCHIATRIC PROGRESS NOTE This late entry 08/13/2019 covers elements not covered in my initial note. SUBJECTIVE: I met with the patient evening of 08/13/2019 and staffed at a treatment team meeting with the entire team in the morning and the patient's 2 daughters and son, all stepchildren attended the conference. We reviewed her progress, diagnosis at length. She is sleeping average 6-1/2 hours. Appetite is 50%. REVIEW OF SYSTEMS: Ambulation impaired, in wheelchair. At times using walker more so than before. REVIEW OF SYSTEMS: No CV, , pulmonary, eye, ENT system symptoms on review. The patient also attended the treatment team meeting at length with the children and the entire team. MENTAL STATUS EXAM: Reasonably oriented. Speech has some latency, coherent. Abstraction fair, computation impaired, language function intact, attention span short. Mood and affect less withdrawn, less psychotic. No suicidal ideation. LABORATORY DATA: Reviewed. IMPRESSION: Major depressive disorder, recurrent with psychotic features, in partial remission. Rest unchanged. PLAN: Continue psychotropics from initial note. Abilify 3 mg a day, Zoloft 125 mg a day, may need to increase Zoloft further in due course. LAI EDGE MD DR: TYESHA/abeba JOB#: [id number] / [id number]
[2019-08-15 05:28] VITALS: BP 128/76
[2019-08-15 07:38] LABS: BASO # 0.1 x10^3/uL (0.0-0.2); BASO % 1 % (0-3); EOS # 0.2 x10^3/uL (0.0-0.7); EOS % 2 % (0-3); HEMATOCRIT 28.2 % (36.0-47.0); HEMOGLOBIN 8.5 g/dL (12.0-15.5); LYMPH # 2.8 x10^3/uL (1.0-4.8); LYMPH % 42 % (24-48); MEAN CORPUSCULAR HEMOGLOBIN 21 pg (25-35); MEAN CORPUSCULAR HGB CONC 30 g/dL (31-37); MEAN CORPUSCULAR VOLUME 71 fL (79-100); MONO # 0.4 x10^3/uL (0.0-1.1); MONO % 6 % (0-9); NEUT # 3.2 x10^3uL (1.8-7.7); NEUT % 48 % (31-73); PLATELET COUNT 373 x10^3/uL (140-400); RED BLOOD COUNT 3.99 x10^6/uL (3.50-5.40); WHITE BLOOD COUNT 6.7 x10^3/uL (4.0-11.0)
[2019-08-15 07:53] LABS: ALBUMIN 2.4 g/dL (3.4-5.0); ALBUMIN/GLOBULIN RATIO 0.8 (1.0-1.7); CREATININE 0.9 mg/dL (0.6-1.0); GFR 60.6; TOTAL BILIRUBIN 0.1 mg/dL (0.2-1.0); TOTAL PROTEIN 5.4 g/dL (6.4-8.2)
[2019-08-15] MEDS: BETHANECHOL CHLORIDE 25 MG TABLET PO SCH ×3 (08:34→17:12)
[2019-08-15] MEDS: ARIPiprazole 2 MG TABLET PO SCH (08:34)
[2019-08-15] MEDS: AMIODARONE HCL 200 MG TABLET PO SCH (08:35)
[2019-08-15] MEDS: amLODIPine BESYLATE 5 MG TABLET PO SCH (08:36)
[2019-08-15] MEDS: LACTOBACILLUS RHAMNOSUS GG 1 CAPSULE. PO SCH ×2 (08:36→20:11)
[2019-08-15] MEDS: SERTRALINE 50 MG TABLET. PO SCH (08:36)
[2019-08-15] MEDS: LOSARTAN 50 MG TABLET. PO SCH (08:36)
[2019-08-15] MEDS: TAMSULOSIN 0.4 MG CAP.ER.24H. PO SCH (08:36)
[2019-08-15 11:52] LABS: PLT ESTIMATE ADEQUATE (ADEQUATE)
[2019-08-15 11:53] LABS: HYPOCHROMIA PRESENT
[2019-08-15 11:54] LABS: ANISOCYTOSIS PRESENT; MICROCYTOSIS PRESENT
[2019-08-15 11:59] LABS: TARGET CELLS FEW
[2019-08-15 12:00] LABS: BURR CELLS FEW; OVALOCYTES FEW; POLYCHROMASIA PRESENT
[2019-08-15 12:02] LABS: TEAR DROP CELLS OCC
[2019-08-15 15:57] VITALS: BP 130/69
--- NOTE | 2019-08-15 22:29 | PDOC ---
Exam Note: Daryn Note: Please also refer to the separate dictated note~for this date of service dictated separately.~Patient seen individually. Discussed the patient with Nursing staff reviewed the chart.~Reviewed interim history and current functioning. Reviewed vital signs,~Labs/ Radiology~and current medications noted below. Continue current treatment with the changes noted in the dictated addendum note Assessment: Vital Signs/I&O: Vital Signs Date Time Temp Pulse Resp B/P (MAP) Pulse Ox O2 Delivery O2 Flow Rate FiO2 08/15/19 15:57 98.2 92 20 130/69 (89) 98 08/13/19 06:23 Room Air I & O 08/14/19 08/14/19 08/15/19 15:00 23:00 07:00 Intake Total 1080 ml 680 ml Output Total 1300 ml 600 ml Balance -220 ml 680 ml -600 ml Labs: Laboratory Tests Test 08/15/19 06:55 White Blood Count 6.7 x10^3/uL (4.0-11.0) Red Blood Count 3.99 x10^6/uL (3.50-5.40) Hemoglobin 8.5 g/dL (12.0-15.5) L Hematocrit 28.2 % (36.0-47.0) L Mean Corpuscular Volume 71 fL (79-100) L Mean Corpuscular Hemoglobin 21 pg (25-35) L Mean Corpuscular Hemoglobin Concent 30 g/dL (31-37) L Red Cell Distribution Width 25.0 % (11.5-14.5) H Platelet Count 373 x10^3/uL (140-400) Neutrophils (%) (Auto) 48 % (31-73) Lymphocytes (%) (Auto) 42 % (24-48) Monocytes (%) (Auto) 6 % (0-9) Eosinophils (%) (Auto) 2 % (0-3) Basophils (%) (Auto) 1 % (0-3) Neutrophils # (Auto) 3.2 x10^3uL (1.8-7.7) Lymphocytes # (Auto) 2.8 x10^3/uL (1.0-4.8) Monocytes # (Auto) 0.4 x10^3/uL (0.0-1.1) Eosinophils # (Auto) 0.2 x10^3/uL (0.0-0.7) Basophils # (Auto) 0.1 x10^3/uL (0.0-0.2) Platelet Estimate Adequate (ADEQUATE) Polychromasia Present Hypochromasia Present Anisocytosis Present Microcytosis Present Target Cells Few Tear Drop Cells Occ Ovalocytes Few Lluvia Cells Few Sodium Level 141 mmol/L (136-145) Potassium Level 4.0 mmol/L (3.5-5.1) Chloride Level 107 mmol/L (98-107) Carbon Dioxide Level 26 mmol/L (21-32) Anion Gap 8 (6-14) Blood Urea Nitrogen 9 mg/dL (7-20) Creatinine 0.9 mg/dL (0.6-1.0) Estimated GFR (Cockcroft-Gault) 60.6 BUN/Creatinine Ratio 10 (6-20) Glucose Level 84 mg/dL (70-99) Calcium Level 8.0 mg/dL (8.5-10.1) L Total Bilirubin 0.1 mg/dL (0.2-1.0) L Aspartate Amino Transferase (AST) 18 U/L (15-37) Alanine Aminotransferase (ALT) 30 U/L (14-59) Alkaline Phosphatase 116 U/L (46-116) Total Protein 5.4 g/dL (6.4-8.2) L Albumin 2.4 g/dL (3.4-5.0) L Albumin/Globulin Ratio 0.8 (1.0-1.7) L Current Medications: I have reviewed the current psychotropics carefully including drug interactions. Risk benefit ratio favors no change other than as noted in my dictated progress note. Diagnosis: Problems: (1) MDD (major depressive disorder), severe (2) Psychotic depression (3) Psychosis, atypical (4) Major depressive disorder, recurrent episode LAI EDGE MD Aug 15, 2019 22:29
--- NOTE | 2019-08-16 01:30 | PN ---
DATE: 08/08/2019 SUBJECTIVE: The patient denies any new medical or neurological complaints. She has not had any falls or loss of consciousness since admission. She continues to have some difficulty walking. She uses a chair to prevent falling. She denies any other medical or neurological complaints. Urine culture was positive and the patient started on Levaquin. OBJECTIVE: GENERAL: Well-developed, well-nourished female, not in acute distress. VITAL SIGNS: Blood pressure 112/57, respiratory rate 15, pulse is 74, oxygen saturation is 95% on room air, and temperature 97.2. HEENT: Normocephalic, atraumatic, otherwise unremarkable. NECK: Supple. Negative for carotid bruit, lymphadenopathy or thyromegaly. LUNGS: Clear to A and P. CARDIOVASCULAR: Regular rate and rhythm. Normal S1 and S2. There is a systolic murmur. ABDOMEN: Soft. Bowel sounds positive. EXTREMITIES: Negative for cyanosis, clubbing or edema. NEUROLOGICAL EXAM: Mental Status: The patient is alert and oriented x 3. Speech is more fluent. There is no language dysfunction. Memory, judgment, and abstract thinking are fair. The patient denies hallucination or delusion. Cranial nerves are intact. No focal motor or sensory deficit. The strength was 4/5 throughout. Deep tendon reflexes were symmetric and hypoactive with absent Achilles responses. Gait: The patient uses a walker or a cane for ambulation. The patient uses a walker, but in the hospital she has been using a chair as well. LABORATORY DATA: Urine culture was positive for gram-negative rods greater than 100,000 colonies. IMPRESSION: 1. History of falls and loss of consciousness, etiology uncertain, rule out seizure versus syncope. 2. Systolic cardiac murmur and history of cardiac arrhythmia, on amiodarone. 3. Multiple medical problems include urinary tract infection, hypertension, hypokalemia and anemia, status post IVC filter placement. RECOMMENDATIONS: 1. Continue with current medical and psychiatric care. 2. Physical therapy evaluation. 3. Await for electroencephalogram. M Sabina LADD MD DR: RUDOLPH/abeba JOB#: [id number] / [id number]
[2019-08-16 05:47] VITALS: BP 138/74
[2019-08-16] MEDS: BETHANECHOL CHLORIDE 25 MG TABLET PO SCH ×3 (08:24→17:15)
[2019-08-16] MEDS: ARIPiprazole 2 MG TABLET PO SCH (08:25)
[2019-08-16] MEDS: AMIODARONE HCL 200 MG TABLET PO SCH (08:25)
[2019-08-16] MEDS: LOSARTAN 50 MG TABLET. PO SCH (08:26)
[2019-08-16] MEDS: LACTOBACILLUS RHAMNOSUS GG 1 CAPSULE. PO SCH ×2 (08:26→19:42)
[2019-08-16] MEDS: TAMSULOSIN 0.4 MG CAP.ER.24H. PO SCH (08:27)
[2019-08-16] MEDS: amLODIPine BESYLATE 5 MG TABLET PO SCH (08:27)
[2019-08-16] MEDS: SERTRALINE 50 MG TABLET. PO SCH (08:29)
[2019-08-16 15:46] VITALS: BP 118/62
[2019-08-16] MEDS: ACETAMINOPHEN 325 MG TABLET PO PRN (19:44)
--- NOTE | 2019-08-16 20:47 | PDOC ---
Exam Note: Daryn Note: Please also refer to the separate dictated note~for this date of service dictated separately.~Patient seen individually. Discussed the patient with Nursing staff reviewed the chart.~Reviewed interim history and current functioning. Reviewed vital signs,~Labs/ Radiology~and current medications noted below. Continue current treatment with the changes noted in the dictated addendum note Assessment: Vital Signs/I&O: Vital Signs Date Time Temp Pulse Resp B/P (MAP) Pulse Ox O2 Delivery O2 Flow Rate FiO2 08/16/19 15:46 98.0 76 18 118/62 (80) 98 08/13/19 06:23 Room Air I & O 08/15/19 08/15/19 08/16/19 15:00 23:00 07:00 Intake Total 840 ml 492 ml Output Total 750 ml 500 ml Balance 840 ml -258 ml -500 ml Current Medications: I have reviewed the current psychotropics carefully including drug interactions. Risk benefit ratio favors no change other than as noted in my dictated progress note. Diagnosis: Problems: (1) MDD (major depressive disorder), severe (2) Psychotic depression (3) Psychosis, atypical (4) Major depressive disorder, recurrent episode LAI EDGE MD Aug 16, 2019 20:47
--- NOTE | 2019-08-17 00:11 | PN ---
DATE: 08/14/2019 PSYCHIATRIC PROGRESS NOTE This late entry, 08/14, covers elements not covered in my initial note. SUBJECTIVE: I met with the patient evening of 08/14. Per CRISTINA Valencia, the patient slept 6-3/4 hours previous night. She did well at night. During the day, 08/14, she was pleasant, interactive, joking and doing well. REVIEW OF SYSTEMS: Ambulation impaired with walker. No CV, , pulmonary, eye, ENT system symptoms on review. Reliability fair. MENTAL STATUS EXAM: Reasonably oriented. Speech has some latency, coherent. Abstraction fair, computation impaired, language function intact, attention span short. Mood and affect less withdrawn. No suicidal ideation. No clear psychotic symptoms. LABORATORY DATA: Reviewed. IMPRESSION: Unchanged from initial note. PLAN: No change from initial note. MAN Ebonie EDGE MD DR: TYESHA/abeba JOB#: [id number] / [id number]
[2019-08-17 05:58] VITALS: BP 144/74
[2019-08-17] MEDS: BETHANECHOL CHLORIDE 25 MG TABLET PO SCH ×3 (08:22→17:23)
[2019-08-17] MEDS: AMIODARONE HCL 200 MG TABLET PO SCH (08:23)
[2019-08-17] MEDS: ARIPiprazole 2 MG TABLET PO SCH (08:23)
[2019-08-17] MEDS: LOSARTAN 50 MG TABLET. PO SCH (08:24)
[2019-08-17] MEDS: amLODIPine BESYLATE 5 MG TABLET PO SCH (08:24)
[2019-08-17] MEDS: LACTOBACILLUS RHAMNOSUS GG 1 CAPSULE. PO SCH ×2 (08:24→20:20)
[2019-08-17] MEDS: TAMSULOSIN 0.4 MG CAP.ER.24H. PO SCH (08:24)
[2019-08-17] MEDS: SERTRALINE 50 MG TABLET. PO SCH (08:24)
[2019-08-17 15:12] VITALS: BP 108/55
[2019-08-17] MEDS: ACETAMINOPHEN 325 MG TABLET PO PRN (20:20)
--- NOTE | 2019-08-17 21:33 | PDOC ---
Exam Note: Daryn Note: Please also refer to the separate dictated note~for this date of service dictated separately.~Patient seen individually. Discussed the patient with Nursing staff reviewed the chart.~Reviewed interim history and current functioning. Reviewed vital signs,~Labs/ Radiology~and current medications noted below. Continue current treatment with the changes noted in the dictated addendum note Assessment: Vital Signs/I&O: Vital Signs Date Time Temp Pulse Resp B/P (MAP) Pulse Ox O2 Delivery O2 Flow Rate FiO2 08/17/19 15:12 98.6 78 18 108/55 (72) 97 08/13/19 06:23 Room Air I & O 08/16/19 08/16/19 08/17/19 15:00 23:00 07:00 Intake Total 480 ml 720 ml Output Total 250 ml Balance 230 ml 720 ml Current Medications: I have reviewed the current psychotropics carefully including drug interactions. Risk benefit ratio favors no change other than as noted in my dictated progress note. Diagnosis: Problems: (1) MDD (major depressive disorder), severe (2) Psychotic depression (3) Psychosis, atypical (4) Major depressive disorder, recurrent episode LAI EDGE MD Aug 17, 2019 21:33
--- NOTE | 2019-08-18 00:46 | PN ---
DATE: 08/15/2019 PSYCHIATRIC PROGRESS NOTE This late entry, 08/15/2019, covers elements not covered in my initial note. SUBJECTIVE: I met with the patient in the evening of 08/15/2019. The patient slept 6-3/4 hours previous night. She has been less depressed, less withdrawn, ambulating with walker more appropriate on the unit. REVIEW OF SYSTEMS: No CV, , pulmonary, eye system symptoms on review. MENTAL STATUS EXAM: Reasonably oriented. Speech is coherent, abstraction fair, computation impaired, language function intact, attention span short. Mood and affect less withdrawn, less psychotic. LABORATORY DATA: Reviewed. IMPRESSION: Unchanged from initial note. PLAN: No change from initial note. LAI EDGE MD DR: TYESHA/abeba JOB#: [id number] / [id number]
--- NOTE | 2019-08-18 00:49 | PN ---
DATE: 08/16/2019 PSYCHIATRIC PROGRESS NOTE. This late entry of 08/16/2019 covers the elements not covered in my initial note. SUBJECTIVE: I met with the patient in the evening of 08/16/2019. The patient slept 7-1/2 hours previous night. She is very pleased with the Salgado was removed and remarked that she felt like a "new woman". Dr. James has seen her for a Neurology consult, EEG to be done this coming week. She ambulates with walker. REVIEW OF SYSTEMS: No CV, , pulmonary, eye system symptoms on review. MENTAL STATUS EXAM: Reasonably oriented. Speech is coherent, has some latency, met with her in her room. Abstraction fair, computation impaired, language function intact. Mood and affect is improved. LABORATORY DATA: Reviewed. IMPRESSION: Unchanged from initial note. PLAN: No change from initial note. MAN Ebonie EDGE MD DR: TYESHA/abeba JOB#: [id number] / [id number]
[2019-08-18 05:32] VITALS: BP 129/75
[2019-08-18] MEDS: ARIPiprazole 2 MG TABLET PO SCH (08:15)
[2019-08-18] MEDS: amLODIPine BESYLATE 5 MG TABLET PO SCH (08:16)
[2019-08-18] MEDS: LOSARTAN 50 MG TABLET. PO SCH (08:17)
[2019-08-18] MEDS: SERTRALINE 50 MG TABLET. PO SCH (08:17)
[2019-08-18] MEDS: AMIODARONE HCL 200 MG TABLET PO SCH (08:17)
[2019-08-18] MEDS: BETHANECHOL CHLORIDE 25 MG TABLET PO SCH ×3 (08:18→17:34)
[2019-08-18] MEDS: LACTOBACILLUS RHAMNOSUS GG 1 CAPSULE. PO SCH ×2 (08:18→20:39)
[2019-08-18] MEDS: TAMSULOSIN 0.4 MG CAP.ER.24H. PO SCH (08:18)
[2019-08-18 15:54] VITALS: BP 101/65
[2019-08-18] MEDS: ACETAMINOPHEN 325 MG TABLET PO PRN ×2 (18:11→20:40)
--- NOTE | 2019-08-18 21:47 | PDOC ---
Exam Note: Daryn Note: Please also refer to the separate dictated note~for this date of service dictated separately.~Patient seen individually. Discussed the patient with Nursing staff reviewed the chart.~Reviewed interim history and current functioning. Reviewed vital signs,~Labs/ Radiology~and current medications noted below. Continue current treatment with the changes noted in the dictated addendum note Assessment: Vital Signs/I&O: Vital Signs Date Time Temp Pulse Resp B/P (MAP) Pulse Ox O2 Delivery O2 Flow Rate FiO2 08/18/19 15:54 97.5 92 18 101/65 (77) 96 08/13/19 06:23 Room Air I & O 08/17/19 08/17/19 08/18/19 15:00 23:00 07:00 Intake Total 480 ml 440 ml Balance 480 ml 440 ml Current Medications: I have reviewed the current psychotropics carefully including drug interactions. Risk benefit ratio favors no change other than as noted in my dictated progress note. Diagnosis: Problems: (1) MDD (major depressive disorder), severe (2) Psychotic depression (3) Psychosis, atypical (4) Major depressive disorder, recurrent episode LAI EDGE MD Aug 18, 2019 21:47
--- NOTE | 2019-08-18 22:40 | PN ---
DATE: 08/17/2019 PSYCHIATRIC PROGRESS NOTE This late entry 08/17/2019 covers elements not covered in my initial note. SUBJECTIVE: I met with the patient evening of 08/17/2019 in her room. She was getting ready for bed, but stated she had better day. Per Jammie RN, she slept 7-1/4 hours previous night. She did well previous night and also during the day. She is ambulating better with a walker. REVIEW OF SYSTEMS: No CV, , pulmonary, eye system symptoms on review. MENTAL STATUS EXAMINATION: The patient is oriented to herself and situation. Speech has some latency, coherent. Abstraction fair, computation impaired, language function intact, attention span short. Mood and affect is less depressed and withdrawn. No psychotic symptoms, suicidal or homicidal ideation. LABORATORY DATA: Reviewed. IMPRESSION: Major depressive disorder with psychotic features in partial remission; mild cognitive impairment. PLAN: Continue psychotropics from initial note. Maintain Zoloft 125 mg a day, Abilify 3 mg a day to augment the Zoloft. Rest unchanged. MAN Ebonie EDGE MD DR: TYESHA/abeba JOB#: [id number] / [id number]
[2019-08-19 06:30] VITALS: BP 119/79
[2019-08-19] MEDS: ARIPiprazole 2 MG TABLET PO SCH (08:22)
[2019-08-19] MEDS: AMIODARONE HCL 200 MG TABLET PO SCH (08:22)
[2019-08-19] MEDS: LACTOBACILLUS RHAMNOSUS GG 1 CAPSULE. PO SCH ×2 (08:23→20:01)
[2019-08-19] MEDS: LOSARTAN 50 MG TABLET. PO SCH (08:23)
[2019-08-19] MEDS: amLODIPine BESYLATE 5 MG TABLET PO SCH (08:23)
[2019-08-19] MEDS: TAMSULOSIN 0.4 MG CAP.ER.24H. PO SCH (08:23)
[2019-08-19] MEDS: BETHANECHOL CHLORIDE 25 MG TABLET PO SCH ×3 (08:24→16:42)
[2019-08-19] MEDS: SERTRALINE 50 MG TABLET. PO SCH (08:24)
[2019-08-19] MEDS: ACETAMINOPHEN 325 MG TABLET PO PRN ×2 (10:43→20:01)
[2019-08-19 15:30] VITALS: BP 108/71
[2019-08-19] MEDS ORDERED: ARIP2TAB35 PO (16:19)
[2019-08-19] MEDS ORDERED: LACT1CAP21 PO (16:21)
[2019-08-19] MEDS ORDERED: MAG-115 PO (16:22)
[2019-08-19] MEDS ORDERED: MAGN24003 PO (16:22)
[2019-08-19] MEDS ORDERED: METH28OI2 TP (16:24)
--- NOTE | 2019-08-19 21:39 | PDOC ---
Exam Note: Daryn Note: Please also refer to the separate dictated note~for this date of service dictated separately.~Patient seen individually. Discussed the patient with Nursing staff reviewed the chart.~Reviewed interim history and current functioning. Reviewed vital signs,~Labs/ Radiology~and current medications noted below. Continue current treatment with the changes noted in the dictated addendum note Assessment: Vital Signs/I&O: Vital Signs Date Time Temp Pulse Resp B/P (MAP) Pulse Ox O2 Delivery O2 Flow Rate FiO2 08/19/19 15:30 97.8 94 18 108/71 (83) 95 I & O 08/18/19 08/18/19 08/19/19 15:00 23:00 07:00 Intake Total 720 ml 480 ml Balance 720 ml 480 ml Current Medications: I have reviewed the current psychotropics carefully including drug interactions. Risk benefit ratio favors no change other than as noted in my dictated progress note. Diagnosis: Problems: (1) MDD (major depressive disorder), severe (2) Psychotic depression (3) Psychosis, atypical (4) Major depressive disorder, recurrent episode LAI EDGE MD Aug 19, 2019 21:39
--- NOTE | 2019-08-20 04:18 | PN ---
DATE: 08/18/2019 PSYCHIATRIC PROGRESS NOTE This late entry of 08/18 covers elements not covered in my initial note. SUBJECTIVE: I met with the patient the evening of 08/18. Per CRISTINA Patle, the patient slept 6-1/4 hours the previous night. She has been pleasant, compliant, much more interactive, ambulating with a walker. Did take a shower, was cooperative with this. REVIEW OF SYSTEMS: Ambulation impaired, with walker. No CV, , pulmonary, eye, ENT system symptoms on review. MENTAL STATUS EXAMINATION: Reasonably oriented. Speech has some latency, coherent. Abstraction fair, computation impaired, language function intact, attention span short. Mood and affect is improved. LABORATORY DATA: Reviewed. IMPRESSION: Unchanged from initial note. PLAN: No change from initial note. MAN Ebonie EDGE MD DR: TYESHA/abeba JOB#: [id number] / [id number]
[2019-08-20 05:49] VITALS: BP 128/72
[2019-08-20] MEDS: TAMSULOSIN 0.4 MG CAP.ER.24H. PO SCH (08:26)
[2019-08-20] MEDS: SERTRALINE 50 MG TABLET. PO SCH (08:26)
[2019-08-20] MEDS: BETHANECHOL CHLORIDE 25 MG TABLET PO SCH (08:26)
[2019-08-20] MEDS: LACTOBACILLUS RHAMNOSUS GG 1 CAPSULE. PO SCH (08:27)
[2019-08-20] MEDS: LOSARTAN 50 MG TABLET. PO SCH (08:27)
[2019-08-20] MEDS: AMIODARONE HCL 200 MG TABLET PO SCH (08:27)
[2019-08-20 08:28] VITALS: BP 128/72
[2019-08-20] MEDS: amLODIPine BESYLATE 5 MG TABLET PO SCH (08:28)
[2019-08-20] MEDS: ARIPiprazole 2 MG TABLET PO SCH (08:28)
--- NOTE | 2019-08-20 21:15 | PDOC ---
Exam Note: Daryn Note: Please also refer to the separate dictated note~for this date of service dictated separately.~Patient seen individually. Discussed the patient with Nursing staff reviewed the chart.~Reviewed interim history and current functioning. Reviewed vital signs,~Labs/ Radiology~and current medications noted below. Continue current treatment with the changes noted in the dictated addendum note Assessment: Vital Signs/I&O: Vital Signs Date Time Temp Pulse Resp B/P (MAP) Pulse Ox O2 Delivery O2 Flow Rate FiO2 08/20/19 08:28 72 128/72 08/20/19 05:49 97.5 20 96 I & O 08/19/19 08/19/19 08/20/19 15:00 23:00 07:00 Intake Total 960 ml 460 ml Balance 960 ml 460 ml Current Medications: I have reviewed the current psychotropics carefully including drug interactions. Risk benefit ratio favors no change other than as noted in my dictated progress note. Diagnosis: Problems: (1) MDD (major depressive disorder), severe (2) Psychotic depression (3) Psychosis, atypical (4) Major depressive disorder, recurrent episode LAI EDGE MD Aug 20, 2019 21:15
--- NOTE | 2019-08-21 09:15 | DS ---
DATE OF DISCHARGE: 08/20/2019 DISCHARGE SUMMARY AND PSYCHIATRIC PROGRESS NOTE This late entry 08/20/2019 covers the elements not covered in my initial note. REASON FOR ADMISSION: Please refer to the admission history for details. Briefly, the patient is a 78-year-old female referred to us from [facility] after she was medically stabilized following hospitalization consequent to being found at home on the floor where she had been for a day or two since she lives alone. She was medically stabilized, was noted to be extremely depressed with poor appetite, low energy, low motivation, refusing care, and medications. She was noted to be somewhat paranoid with a flat affect, having a " wish". She would not get out of bed, even though she is physically able to. She was extremely dehydrated and had a UTI and urinary sepsis once she was admitted to [facility], all of which has been stabilized, but the depression persisted interfering significantly with her recovery and she was referred for inpatient psychiatric stabilization. SIGNIFICANT FINDINGS AND CLINICAL COURSE: Following admission, the patient was seen daily individually by myself from a psychiatric standpoint, medical followup with Dr. Obrien. The patient was extremely depressed and withdrawn. Adjustments were made in her psychotropics and she seemed to respond to a combination of Zoloft 125 mg a day, Abilify adjusted to 3 mg a day. Gradually, mood improved. She was ambulating with a walker, more interactive, coming out to groups. Denied suicidal ideation. Neurology consult was completed with Dr. James. EEG was done. REVIEW OF SYSTEMS: Prior to discharge on 08/20/2019, ambulation impaired with walker. No CV, , pulmonary, eye system symptoms on review. Reliability varies. MENTAL STATUS EXAM: Reasonably oriented. Speech has some latency, coherent. Abstraction fair, computation impaired, language function intact. Mood and affect still depressed, but improved. LABORATORY DATA: Reviewed. CONDITION AT DISCHARGE: Improved. FINAL DIAGNOSES: Major depressive disorder, recurrent, in partial remission; anxiety disorder, unspecified. Rest unchanged from admission. DISCHARGE MEDICATIONS: Please refer to the [facility]AD. She was transferred to [facility] facility. DISCHARGE INSTRUCTIONS: Outpatient psychiatric and medical followup at the [facility] facility. Time for discharge day management greater than 30 minutes. LAI EDGE MD DR: TYESHA/abeba JOB#: [id number] / [id number]
--- NOTE | 2019-08-21 09:38 | PN ---
DATE: 08/19/2019 PSYCHIATRIC PROGRESS NOTE This late entry 08/19/2019 covers elements not covered in my initial note. SUBJECTIVE: I met with the patient in the evening of 08/19/2019 in her room at some length. Per CRISTINA Patel, the patient slept 7-3/4 hours previous night. She is compliant with her medications, pleasant. EEG has been completed. We will defer to Dr. James, Neurology for this. REVIEW OF SYSTEMS: Ambulation impaired with walker. No CV, , pulmonary, eye system symptoms on review. MENTAL STATUS EXAM: Reasonably oriented. Speech is coherent, abstraction fair, computation impaired, language function intact, attention span fair. Mood and affect is improved. LABORATORY DATA: Reviewed. IMPRESSION: Major depressive disorder, severe, in partial remission; mild cognitive impairment; anxiety disorder, unspecified. PLAN: Continue psychotropics from initial note. Transition to a lower level of care on 08/20/2019. LAI EDGE MD DR: TYESHA/abeba JOB#: [id number] / [id number]
== END 2019-08-20 10:15 | DRG 885 ==
LOC: GEROPSY 16:19
PROVIDERS: ADMIT Psychiatry & Neurology Psychiatry; ATTEND Psychiatry & Neurology Psychiatry
DX: F33.41 Major depressive disorder, recurrent, in partial remission (principal); E43 Unspecified severe protein-calorie malnutrition; F33.3 Major depressive disorder, recurrent, severe with psychotic symptoms; F41.9 Anxiety disorder, unspecified; I48.91 Unspecified atrial fibrillation; D50.9 Iron deficiency anemia, unspecified; Z68.28 Body mass index [BMI] 28.0-28.9, adult; E87.6 Hypokalemia; I10 Essential (primary) hypertension; G31.84 Mild cognitive impairment of uncertain or unknown etiology; E86.0 Dehydration; M13.0 Polyarthritis, unspecified; Z79.01 Long term (current) use of anticoagulants; Z79.899 Other long term (current) drug therapy; Z88.0 Allergy status to penicillin; Z88.8 Allergy status to other drugs, medicaments and biological substances; Z85.3 Personal history of malignant neoplasm of breast; Z90.710 Acquired absence of both cervix and uterus; Z95.828 Presence of other vascular implants and grafts; Z91.81 History of falling
CPT/HCPCS: 36415; 76770; 76856; 80048; 80053; 80061; 81001; 82306; 82607; 83036; 83540; 83550; 83735; 84436; 84443; 84480; 85025; 85027; 86592; 87086; 87186; 93005; 95816; 97110; 97116; 97530; 97535